=== PATIENT | female | born 1970 | race Caucasian/White ===

== ENCOUNTER 2016-09-27 12:17 | Inpatient (IN) | payer OTHER ==
[2016-09-27] MEDS ORDERED: ONDANSETRON 4 MG/2 ML VIAL IVP STA (12:23)
[2016-09-27] MEDS ORDERED: HYDROmorphone 1 MG/ML 1 ML SYRINGE IVP STA (12:23)
--- NOTE | 2016-09-27 13:32 | XR ---
EXAMINATION TYPE: XR Hip RT and AP Pelvis DATE OF EXAM: 09/27/2016 COMPARISON: NONE HISTORY: Pain in the right hip after falling off a horse today. TECHNIQUE: A single AP view of the pelvis is obtained. Two views of the right hip are obtained. FINDINGS: There is no acute fracture/dislocation evident in the pelvis. The hip and sacroiliac join ts appear symmetric and unremarkable. The overlying soft tissue appears unremarkable. Two views of right hip show no acute fracture or dislocation. No focal lytic or sclerotic lesion see n in the proximal right femur. The overlying soft tissue is unremarkable. IMPRESSION: There is no acute fracture or dislocation in the pelvis or right hip.
[2016-09-27] MEDS ORDERED: KETOROLAC 60 MG/2 ML VIAL IVP STA (13:49)
--- NOTE | 2016-09-27 14:42 | CT ---
EXAMINATION TYPE: CT pelvis wo con DATE OF EXAM: 09/27/2016 COMPARISON: Radiograph obtained earlier today. HISTORY: Fall from a horse CT DLP: 402.30 mGycm Automated exposure control for dose reduction was used. FINDINGS: There is a lucency through the intertrochanteric right femur which is very subtle but is best appreci ated on axial image 57 of 85 and coronal image 36 of 74. This is felt to be a likely complete fractur e which is nondisplaced. The femoral head appears unremarkable. The acetabulum is unremarkable. Struc tures of the visualized pelvis are unremarkable. The urinary bladder is distended. IMPRESSION: SUBTLE LIKELY COMPLETE FRACTURE IS IDENTIFIED IN THE INTERTROCHANTERIC RIGHT FEMUR.
[2016-09-27] MEDS ORDERED: SODIUM CHLORIDE 0.9% 1,000 ML IV ONE (15:08)
--- NOTE | 2016-09-27 15:37 | ED ---
General Adult HPI - General Chief complaint: Trauma Stated complaint: Fall Time Seen by Provider: 09/27/16 12:20 Source: patient, EMS, RN notes reviewed Mode of arrival: EMS Limitations: no limitations - History of Present Illness Initial comments: This is a 46-year-old female presents emergency department for any right hip pain patient was on a horse and horse bucked up in [place] fell back onto her if she landed on the ground on her right hip. Patient states she is unable to move the hip. Patient denies any knee pain or ankle pain or foot pain patient denies any other pain. Patient denies back pain. Patient states she was not wearing a helmet but she did not hit her head she has no neck pain. Patient denies any numbness weakness. Patient denies chest pain or any shortness of breath per patient denies any lower or upper back pain. Patient denies any upper extremity pain. Patient was unable to ambulate. - Related Data Home Medications Medication Instructions Recorded Confirmed Cetirizine HCl [Zyrtec] 10 mg PO DAILY 09/27/16 09/27/16 Citalopram Hydrobromide [CeleXA] 20 mg PO DAILY 09/27/16 09/27/16 Fluticasone Nasal [place] [Flonase 1 spray EA NOSTRIL DAILY 09/27/16 09/27/16 Nasal [place]] Ibuprofen/Pseudoephedrine HCl 1 tab PO DAILY PRN 09/27/16 09/27/16 [Advil Cold & Sinus Caplet] amLODIPine [Norvasc] 5 mg PO DAILY 09/27/16 09/27/16 Allergies Allergy/AdvReac Type Severity Reaction Status Date / Time No Known Allergies Allergy Verified 09/27/16 13:13 Review of Systems ROS Statement: Those systems with pertinent positive or pertinent negative responses have been documented in the HPI. ROS Other: All systems not noted in ROS Statement are negative. Past Medical History Past Medical History: Hypertension History of Any Multi-Drug Resistant Organisms: None Reported Past Surgical History: Cholecystectomy, Hysterectomy Additional Past Surgical History / Comment(s): Cyst removed from right forearm, blood clott removed fro scalp after concusion Past Psychological History: Depression Smoking Status: Current every day smoker Past Alcohol Use History: None Reported Past Drug Use History: Marijuana General Exam - General Exam Comments Initial Comments: GENERAL: Patient is well-developed and well-nourished. Patient is nontoxic and well- hydrated and is in moderate distress. ENT: Neck is soft and supple. No significant lymphadenopathy is noted. Oropharynx is clear. Moist mucous membranes. Neck has full range of motion without eliciting any pain. EYES: The sclera were anicteric and conjunctiva were pink and moist. Extraocular movements were intact and pupils were equal round and reactive to light. Eyelids were unremarkable. PULMONARY: Unlabored respirations. Good breath sounds bilaterally. No audible rales rhonchi or wheezing was noted. CARDIOVASCULAR: There is a regular rate and rhythm without any murmurs gallops or rubs. ABDOMEN: Soft and nontender with normal bowel sounds. SKIN: Skin is clear with no lesions or rashes and otherwise unremarkable. NEUROLOGIC: Patient is alert and oriented x3. Cranial nerves II through XII are grossly intact. Motor and sensory are also intact. Normal speech, volume and content. Symmetrical smile. MUSCULOSKELETAL: Right hip is tender to palpation on the lateral and anterior aspect. Patient is unable to move it without causing excruciating pain. LYMPHATICS: No significant lymphadenopathy is noted PSYCHIATRIC: Normal psychiatric evaluation. Limitations: no limitations Course Vital Signs 09/27/16 09/27/16 09/27/16 12:20 13:28 15:04 Temperature 99.4 F Pulse Rate 99 78 83 Respiratory 18 16 16 Rate Blood Pressure 172/97 136/87 140/87 O2 Sat by Pulse 99 95 96 Oximetry Medical Decision Making - Medical Decision Making X-ray shows no fracture of the hip. Patient still in excruciating pain on any kind of movement slight CT the hip and it shows an intertrochanteric fracture. [facility] Disposition Clinical Impression: Intertrochanteric fracture Disposition: ADMITTED IP TO THIS HOSP Time of Disposition: 15:37
[2016-09-27 16:42] VITALS: BMI 28.3
[2016-09-27] MEDS: HYDROmorphone 1 MG/ML 1 ML SYRINGE IVP PRN ×2 (17:44→21:44)
[2016-09-27 19:47] VITALS: RESP 16
[2016-09-28] MEDS: HYDROmorphone 1 MG/ML 1 ML SYRINGE IVP PRN ×4 (05:52→18:12)
[2016-09-28 07:02] LABS: Basophils # (A) 0.1 k/uL (0-0.2); Basophils % (A) 1 %; CH 32.6; CHCM 34.1; Eosinophils # (A) 0.4 k/uL (0-0.7); Eosinophils % (A) 5 %; HCT 40.1 % (34.0-46.0); HDW 2.83; HGB 13.2 gm/dL (11.4-16.0); Luc # (Auto) 0.12; Luc % (Auto) 2; Lymphocytes # (A) 1.4 k/uL (1.0-4.8); Lymphocytes % (A) 18 %; MCH 31.6 pg (25.0-35.0); MCHC 32.9 g/dL (31.0-37.0); MCV 96.2 fL (80.0-100.0); Mean Platelet Volume 8.7; Monocytes # (A) 0.4 k/uL (0-1.0); Monocytes % (A) 6 %; Neutrophils # (A) 5.7 k/uL (1.3-7.7); Neutrophils % (A) 70 %; RBC 4.17 m/uL (3.80-5.40); RDW 14.2 % (11.5-15.5); WBC 8.1 k/uL (3.8-10.6); WBC (Perox) 7.98
[2016-09-28 07:11] LABS: ALT 40 U/L (9-52); AST 29 U/L (14-36); Alkaline Phosphatase 68 U/L (38-126); Anion Gap 9 mmol/L; Blood Urea Nitrogen 10 mg/dL (7-17); Calcium 8.6 mg/dL (8.4-10.2); Carbon Dioxide 25 mmol/L (22-30); Chloride 107 mmol/L (98-107); Glucose 102 mg/dL (74-99); Non-African American GFR(MDRD) >60 (>60 ml/min/1.73 sqM); Potassium 4.2 mmol/L (3.5-5.1); Sodium 141 mmol/L (137-145); Total Bilirubin 0.5 mg/dL (0.2-1.3); Total Protein 6.2 g/dL (6.3-8.2)
[2016-09-28] MEDS: LORATADINE 10 MG TAB PO SCH (08:33)
[2016-09-28] MEDS: CITALOPRAM HYDROBROMIDE 20 MG TAB PO SCH (08:33)
[2016-09-28] MEDS: FLUTICASONE 50MCG/SPRAY NASAL 16GM EA NOSTRIL SCH (08:33)
[2016-09-28] MEDS: amLODIPine 5 MG TAB PO SCH (08:34)
[2016-09-28] MEDS ORDERED: HYDROcodone/APAP 5-325MG 1 EACH TAB PO PRN ×2 (08:36)
--- NOTE | 2016-09-28 08:52 | P.HPOR ---
History of Present Illness H&P Date: 09/28/16 This is a pleasant 46-year-old female who is admitted to orthopedics for a nondisplaced intertrochanteric fracture of the right hip. Patient states yesterday she was riding a horse when she got kicked off. Patient states she landed on the right hip and the horse may have stepped on her as well. Patient states she was unable to stand or move the right leg after this occurred. Patient states she traveled by EMS to [facility] emergency room. An x- ray was done in the emergency room and was negative for any fracture. Due to the patient's pain a CT scan was done showing likely nondisplaced intertrochanteric fracture of the right femur. Patient was admitted as an inpatient for further evaluation. Today patient states her pain is under control unless she moves the right leg. Patient states she has not been out of bed except to use the commode. Patient denies any knee pain, calf pain, foot or ankle pain of the right lower extremity. Patient denies any neck pain, bilateral upper extremities, back, left lower extremity pain, numbness, tingling , or weakness. Review of Systems See HPI. Past Medical History Past Medical History: Hypertension History of Any Multi-Drug Resistant Organisms: None Reported Past Surgical History: Cholecystectomy, Hysterectomy Additional Past Surgical History / Comment(s): Cyst removed from right forearm, blood clott removed fro scalp after concusion Past Anesthesia/Blood Transfusion Reactions: Motion Sickness, Postoperative Nausea & Vomiting (PONV) Smoking Status: Current every day smoker Medications and Allergies Home Medications Medication Instructions Recorded Confirmed Type Cetirizine HCl [Zyrtec] 10 mg PO DAILY 09/27/16 09/27/16 History Citalopram Hydrobromide [CeleXA] 20 mg PO DAILY 09/27/16 09/27/16 History Fluticasone Nasal [place] [Flonase 1 spray EA NOSTRIL DAILY 09/27/16 09/27/16 History Nasal [place]] Ibuprofen/Pseudoephedrine HCl 1 tab PO DAILY PRN 09/27/16 09/27/16 History [Advil Cold & Sinus Caplet] amLODIPine [Norvasc] 5 mg PO DAILY 09/27/16 09/27/16 History Allergies Allergy/AdvReac Type Severity Reaction Status Date / Time No Known Allergies Allergy Verified 09/27/16 13:13 Physical Examination On exam patient is alert and oriented 3. Patient is in no acute distress. There is no deformity of the right hip noted on inspection. Patient is tender to palpation over the right hip. Patient has no pain in the right hip with logroll of the right lower extremity. Patient has some pain in the groin of the right hip with flexion of the right lower extremity. Patient has full foot and ankle motion. Calf is soft and nontender. Dorsalis pedis and posterior tibial pulses are 2+. Neurovascular status is intact. There is no tenderness to palpation of the left hip. Patient has full range of motion of the left lower extremity. Calf is soft and nontender. Neurovascular status is intact. There is no tenderness to palpation of the cervical midline, no tenderness to palpation of bilateral upper extremities. Patient has full range of motion of bilateral upper extremities. Neurovascular status of the upper extremities is intact bilaterally Results X-rays of the right hip and pelvis are reviewed revealing no fracture or dislocation. A CT scan of the right hip was reviewed showing nondisplaced intertrochanteric fracture right femur. - Labs Labs: Abnormal Lab Results - Last 24 Hours (Table) 09/28/16 Range/Units 06:30 Glucose 102 H (74-99) mg/dL Total Protein 6.2 L (6.3-8.2) g/dL H & H 09/28/16 Range/Units 06:30 Hgb 13.2 (11.4-16.0) gm/dL Hct 40.1 (34.0-46.0) % Result Diagrams: 09/28/16 06:30 09/28/16 06:30 Assessment and Plan (1) Closed intertrochanteric fracture of right hip Status: Acute Plan: #1. Patient is to remain nonweightbearing to the right lower extremity. #2. Continue pain control and ice to the right lower extremity. #3. No surgical intervention planned at this time. Will continue to follow the patient closely.
--- NOTE | 2016-09-28 10:29 | P.DS ---
Providers Date of admission: 09/27/16 15:08 Expected date of discharge: 09/28/16 Attending physician: Raghu Dorsey Primary care physician: Physician Nonstaff - Discharge Diagnosis(es) (1) Closed intertrochanteric fracture of right hip Current Visit: Yes Status: Acute Hospital Course: This is a 46-year-old female who sustained injury to the right hip after a fall off of a horse on 09/27/2016. A CT scan showed a nondisplaced intertrochanteric fracture of the right femur. Patient is admitted to [facility] on 09/27/2016 for orthopedic evaluation. No surgical intervention is planned and patient is to remain nonweightbearing to the right lower extremity. Patient has been up and out of bed to the commode and also up with physical therapy. Labs and vital signs are stable on day of discharge. On day of discharge there is some tenderness to palpation of the right hip. There is no swelling, erythema or ecchymosis. There is no deformity of the right lower extremity. There is no tenderness of the knee, ankle or foot. Patient is able to flex at the knee joint with limited range of motion due to pain in the right hip. There is no pain in the hip with log roll of the right lower extremity. Patient has full foot and ankle motion without difficulty or pain. Calf is soft and nontender. Neurovascular status to the right lower extremity is intact. Patient is discharged home in good condition. Please see med rec for accurate list of home medications. Plan - Discharge Summary New Discharge Prescriptions: New HYDROcodone/APAP 5-325MG [[place] 5-325] 1 - 2 tab PO Q4-6H PRN #90 tab PRN Reason: Pain Sennosides-Docusate Sodium [Senokot-S] 1 tab PO BID #60 tablet No Action Ibuprofen/Pseudoephedrine HCl [Advil Cold & Sinus Caplet] 1 tab PO DAILY PRN PRN Reason: COLD AND SINUS Fluticasone Nasal [place] [Flonase Nasal [place]] 1 spray EA NOSTRIL DAILY amLODIPine [Norvasc] 5 mg PO DAILY Citalopram Hydrobromide [CeleXA] 20 mg PO DAILY Cetirizine HCl [Zyrtec] 10 mg PO DAILY Discharge Medication List Cetirizine HCl [Zyrtec] 10 mg PO DAILY 09/27/16 [History] Citalopram Hydrobromide [CeleXA] 20 mg PO DAILY 09/27/16 [History] Fluticasone Nasal [place] [Flonase Nasal [place]] 1 spray EA NOSTRIL DAILY 09/27/16 [History] Ibuprofen/Pseudoephedrine HCl [Advil Cold & Sinus Caplet] 1 tab PO DAILY PRN [History] amLODIPine [Norvasc] 5 mg PO DAILY 09/27/16 [History] HYDROcodone/APAP 5-325MG [[place] 5-325] 1 - 2 tab PO Q4-6H PRN #90 tab 09/28/16 [ Rx] Sennosides-Docusate Sodium [Senokot-S] 1 tab PO BID #60 tablet 09/28/16 [Rx] Follow up Appointment(s)/Referral(s): Nonstaff,Physician [Primary Care Provider] - 1-2 days Ambulatory/Diagnostic Orders: Walker [DME.AMB1] Time Frame: 8 Weeks, Location: Determined By Patient Activity/Diet/Wound Care/Special Instructions: Remain nonwieghtbearing to the right lower extremity Use walker to ambulate Ice to right hip Please take pain medication as prescribed Please follow up with an orthopedic physician in the next 1-2 days Any questions or concerns call [facility] at [phone] Discharge Disposition: HOME SELF-CARE
[2016-09-28] MEDS ORDERED: HYDROcodone/APAP 7.5-325MG 1 EACH TAB PO PRN (16:30)
[2016-09-28] MEDS: ONDANSETRON 4 MG/2 ML VIAL IVP PRN (23:58)
[2016-09-29] MEDS: HYDROcodone/APAP 7.5-325MG 1 EACH TAB PO PRN ×2 (00:06→09:48)
[2016-09-29] MEDS: HYDROmorphone 1 MG/ML 1 ML SYRINGE IVP PRN ×3 (02:52→11:22)
[2016-09-29] MEDS: SODIUM CHLORIDE 0.9% 1,000 ML IV SCH ×2 (07:30→11:57)
[2016-09-29] MEDS: ONDANSETRON 4 MG/2 ML VIAL IVP PRN ×2 (07:34→11:23)
[2016-09-29 07:55] VITALS: BP 117/83; PULSE 66; TEMP 98.8
[2016-09-29] MEDS: CITALOPRAM HYDROBROMIDE 20 MG TAB PO SCH (11:23)
[2016-09-29] MEDS: FLUTICASONE 50MCG/SPRAY NASAL 16GM EA NOSTRIL SCH (11:23)
[2016-09-29] MEDS: LORATADINE 10 MG TAB PO SCH (11:24)
[2016-09-29] MEDS: amLODIPine 5 MG TAB PO SCH (11:24)
== END 2016-09-29 12:30 | disposition home health service (06) | DRG 536 ==
LOC: EC 12:17 → 3SUR 15:08
PROVIDERS: ADMIT Orthopaedic Surgery; ATTEND Orthopaedic Surgery
DX: S72.144A Nondisplaced intertrochanteric fracture of right femur, initial encounter for closed fracture (principal); I10 Essential (primary) hypertension; F17.200 Nicotine dependence, unspecified, uncomplicated; F32.9 Major depressive disorder, single episode, unspecified; F12.90 Cannabis use, unspecified, uncomplicated; Z79.899 Other long term (current) drug therapy; Z87.820 Personal history of traumatic brain injury; Z87.828 Personal history of other (healed) physical injury and trauma; Z79.51 Long term (current) use of inhaled steroids; V80.010A Animal-rider injured by fall from or being thrown from horse in noncollision accident, initial encounter; Y93.52 Activity, horseback riding
CPT/HCPCS: 72192; 73502; 80053; 85025; 96374; 96375; 99285